=== PATIENT | male | born 2000 | race Caucasian/White ===

== ENCOUNTER 2021-05-30 11:42 | Observation (INO) | payer BC ==
[2021-05-30] VITALS (8 sets, daily range): BP systolic 108–122; BP diastolic 50–69
[~2021-05-30] VITALS: Ht 179.8 cm; Wt 66.4 kg
--- NOTE | 2021-05-30 12:13 | ED Abdominal Pain ---
General Chief Complaint: Abdominal/GI Problems Stated Complaint: ABD PAIN Source of Information: Patient Exam Limitations: No Limitations History of Present Illness Date Seen by Provider: May 30, 2021 Time Seen by Provider: 12:09 Initial Comments Patient is a 21-year-old male who presents ED with abdominal pain, diarrhea and vomiting. Symptoms started 2 days ago with generalized abdominal discomfort. Pain is more located in the lower abdomen. Pain has been generalized crampy worse with standing or movement. Gets relief when he lays down. Had 5-7 episodes of watery diarrhea yesterday was seen at [facility] and was given diarrhea medication. Patient was seen today at the clinic and was found to be febrile and tachycardic. Was given 2 L of fluid with abnormal lab work with elevated white blood count, bilirubin and CRP. Was sent to the ED for further evaluation and septic work-up. Patient did travel to [place] 3 weeks ago for spring. Did eat a salad recently. He states the diarrhea has improved. Vomited once nonbilious. Denies of any cough, runny nose, sore throat, ear pain, history of previous abdominal surgery. States he did urinate today after the diarrhea stopped. Patient is febrile and tachycardic on arrival. Septic work-up was initiated Allergies and Home Medications Allergies Coded Allergies: No Known Drug Allergies (Unverified , 05/30/21) Patient Home Medication List Home Medication List Reviewed: Yes Review of Systems Review of Systems Constitutional: chills; No diaphoresis; malaise, weakness EENTM: No Blurred Vision, No Eye Pain, No Ear Pain, No Mouth Pain Cardiovascular: Denies Chest Pain Gastrointestinal: Abdominal Pain, Diarrhea, Nausea, Vomiting Genitourinary: Denies Burning, Denies Discharge Musculoskeletal: No back pain, No joint pain Skin: No change in color, No change in hair/nails All Other Systems Reviewed Negative Unless Noted: Yes Past Ynybesh-Zurnfk-Oxvmjd Hx Patient Social History Tobacco Use?: No Substance use?: No Alcohol Use?: No Pt feels they are or have been: No Physical Exam Vital Signs Vital Signs - First Documented 05/30/21 12:05 Temp 38.3 Pulse 120 Resp 18 B/P (MAP) 145/86 (105) Pulse Ox 97 Capillary Refill : Height/Weight/BMI Height: '" Weight: lbs. oz. kg; BMI Method: General Appearance: WD/WN, no apparent distress HEENT: PERRL/EOMI, normal ENT inspection, TMs normal, pharynx normal Neck: non-tender, full range of motion Respiratory: chest non-tender, lungs clear, normal breath sounds, no respiratory distress, no accessory muscle use Cardiovascular: regular rate, rhythm, no edema, no gallop, no JVD Gastrointestinal: normal bowel sounds, non tender, no organomegaly, no pulsatile mass, tenderness (Generalized abdominal tenderness) Extremities: normal range of motion, non-tender, normal inspection Back: normal inspection, no CVA tenderness Skin: normal color, warm/dry Focused Exam Lactate Level 05/30/21 12:05: Lactic Acid Level 1.09 Lactic Acid Level Laboratory Tests Test 05/30/21 12:05 Lactic Acid Level 1.09 MMOL/L (0.50-2.00) Progress/Results/Core Measures Results/Orders Lab Results Laboratory Tests Test 05/30/21 12:05 05/30/21 12:50 Range/Units White Blood Count 13.2 H 4.3-11.0 10^3/uL Red Blood Count 4.80 4.30-5.52 10^6/uL Hemoglobin 13.6 13.3-17.7 g/dL Hematocrit 40 40-54 % Mean Corpuscular Volume 84 80-99 fL Mean Corpuscular Hemoglobin 28 25-34 pg Mean Corpuscular Hemoglobin Concent 34 32-36 g/dL Red Cell Distribution Width 12.6 10.0-14.5 % Platelet Count 131 130-400 10^3/uL Mean Platelet Volume 12.1 9.0-12.2 fL Immature Granulocyte % (Auto) 1 % Neutrophils (%) (Auto) 89 H 42-75 % Lymphocytes (%) (Auto) 5 L 12-44 % Monocytes (%) (Auto) 5 0-12 % Eosinophils (%) (Auto) 0 0-10 % Basophils (%) (Auto) 0 0-10 % Neutrophils # (Auto) 11.7 H 1.8-7.8 10^3/uL Lymphocytes # (Auto) 0.7 L 1.0-4.0 10^3/uL Monocytes # (Auto) 0.7 0.0-1.0 10^3/uL Eosinophils # (Auto) 0.0 0.0-0.3 10^3/uL Basophils # (Auto) 0.0 0.0-0.1 10^3/uL Immature Granulocyte # (Auto) 0.1 0.0-0.1 10^3/uL Neutrophils % (Manual) 82 % Lymphocytes % (Manual) 6 % Monocytes % (Manual) 5 % Band Neutrophils 7 % Blood Morphology Comment NORMAL Urine Color YELLOW Urine Clarity CLEAR Urine pH 6.5 5-9 Urine Specific [place] 1.020 1.016-1.022 Urine Protein 1+ H NEGATIVE Urine Glucose (UA) NEGATIVE NEGATIVE Urine Ketones 1+ H NEGATIVE Urine Nitrite NEGATIVE NEGATIVE Urine Bilirubin NEGATIVE NEGATIVE Urine Urobilinogen 0.2 < = 1.0 MG/DL Urine Leukocyte Esterase NEGATIVE NEGATIVE Urine RBC (Auto) TRACE-I H NEGATIVE Urine RBC 0-2 /HPF Urine WBC NONE /HPF Urine Crystals NONE /LPF Urine Bacteria NEGATIVE /HPF Urine Casts NONE /LPF Urine Mucus NEGATIVE /LPF Urine Culture Indicated NO Lactic Acid Level 1.09 0.50-2.00 MMOL/L Direct Bilirubin 0.3 0.0-0.3 MG/DL Influenza Type A (RT-PCR) Not Detected Not Detecte Influenza Type B (RT-PCR) Not Detected Not Detecte SARS-CoV-2 RNA (RT-PCR) Not Detected Not Detecte Prothrombin Time 15.7 H 12.2-14.7 SEC INR Comment 1.2 0.8-1.4 Activated Partial Thromboplast Time 37 H 24-35 SEC Sodium Level 134 L 135-145 MMOL/L Potassium Level 4.1 3.6-5.0 MMOL/L Chloride Level 101 98-107 MMOL/L Carbon Dioxide Level 20 L 21-32 MMOL/L Anion Gap 13 5-14 MMOL/L Blood Urea Nitrogen 12 7-18 MG/DL Creatinine 0.78 0.60-1.30 MG/DL Estimat Glomerular Filtration Rate 130 BUN/Creatinine Ratio 15 Glucose Level 108 H 70-105 MG/DL Calcium Level 9.2 8.5-10.1 MG/DL Corrected Calcium 9.4 8.5-10.1 MG/DL Total Bilirubin 3.9 H 0.1-1.0 MG/DL Aspartate Amino Transf (AST/SGOT) 17 5-34 U/L Alanine Aminotransferase (ALT/SGPT) 11 0-55 U/L Alkaline Phosphatase 52 40-136 U/L Total Protein 6.7 6.4-8.2 GM/DL Albumin 3.7 3.2-4.5 GM/DL My Orders Orders - DARVIN SALMERON Cbc With Automated Diff (05/30/21 12:02) Comprehensive Metabolic Panel (05/30/21 12:02) Blood Culture (05/30/21 12:02) Urinalysis (05/30/21 12:02) Urine Culture (05/30/21 12:02) Protime With Inr (05/30/21 12:02) Partial Thromboplastin Time (05/30/21 12:02) Chest 1 View, Ap/Pa Only (05/30/21 12:02) Ed Iv/Invasive Line Start (05/30/21 12:02) Ed Iv/Invasive Line Start (05/30/21 12:02) Vital Signs Adult Sepsis Patie Q15M (05/30/21 12:02) Ondansetron Injection (Zofran Injectio (05/30/21 12:15) O2 (05/30/21 12:02) Remove Rings In Anticipation O (05/30/21 12:02) Lactic Acid Analyzer (05/30/21 12:02) Influenza A And B By Pcr (05/30/21 12:02) Ns Iv 1000 Ml (Sodium Chloride 0.9%) (05/30/21 12:15) Piperacillin Sodium/Tazobactam (Zosyn Vi (05/30/21 12:15) Covid 19 Inhouse Test (05/30/21 12:02) Hepatitis Panel Acute (05/30/21 12:02) Ct Abdomen/Pelvis W (05/30/21 12:04) Manual Differential (05/30/21 12:05) Ketorolac Injection (Toradol Injection) (05/30/21 13:00) Iohexol Injection (Omnipaque 350 Mg/Ml 1 (05/30/21 13:00) Received Contrast (Hold Metformin- Contr (05/30/21 13:00) Sodium Chloride Flush (Catheter Flush Sy (05/30/21 13:00) Ns (Ivpb) (Sodium Chloride 0.9% Ivpb Bag (05/30/21 13:00) Bilirubin,Direct (05/30/21 13:21) Nothing By Mouth (05/30/21 Lunch) Medications Given in ED Current Medications Medications Dose Ordered Sig/Levar Route Start Time Stop Time Status Last Admin Dose Admin Iohexol 100 ml ONCE ONCE IV 05/30/21 13:00 05/30/21 13:01 DC 05/30/21 13:23 80 ML Ketorolac Tromethamine 30 mg ONCE ONCE IVP 05/30/21 13:00 05/30/21 13:01 DC 05/30/21 13:06 30 MG Ondansetron HCl 4 mg PRN PRN IV 05/30/21 12:15 05/30/21 12:35 DC 05/30/21 12:34 4 MG Piperacillin Sod/ Tazobactam Sod 4.5 gm/Sodium Chloride 100 ml @ 200 mls/hr ONCE ONCE IV 05/30/21 12:15 05/30/21 12:44 DC 05/30/21 13:06 200 MLS/HR Sodium Chloride 10 ml NEEDED PRN IV 05/30/21 13:00 05/30/21 13:23 10 ML Sodium Chloride 100 ml ONCE ONCE IV 05/30/21 13:00 05/30/21 13:01 DC 05/30/21 13:23 80 ML Vital Signs/I&O 05/30/21 12:05 Temp 38.3 Pulse 120 Resp 18 B/P (MAP) 145/86 (105) Pulse Ox 97 Departure Communication (PCP) Patient was tachycardic and febrile. Was given Toradol and started on liter of fluid. Normal lactic acid. Blood cultures pending. Was given a dose of Zosyn. Discussed patient with Dr. Acharya is concerning for biliary disease secondary to elevated bilirubin and conjugated bilirubin. Elevated white blood count. Patient does have abdominal pain appears to be located on the right side. Negative psoas sign and obturator sign. Healthy gentleman. Last time he ate or drank was 1030 and drank a bottle water. Received 2 L of fluid at [facility]. Slight elevated bilirubin 3.9. Normal conjugated bilirubin. Elevated white blood count. Normal kidney function and liver function and pancreatic function. Negative influenza and strep. Hepatitis panel pending. CT abdomen pelvis concerning for acute appendicitis. Patient was discussed with Dr. Peralta who will see patient here in the ED. recommend surgery today. Will be admitted to medical floor surgical services under Dr. Peralta Impression Primary Impression: Appendicitis Disposition: 09 ADMITTED INPATIENT Condition: Stable Admissions Decision to Admit Reason: Admit from ER (General) Decision to Admit/Date: May 30, 2021 Time/Decision to Admit Time: 14:01 Departure-Patient Inst. Referrals: NO,LOCAL PHYSICIAN (PCP/Family) Primary Care Physician DARVIN SALMERON May 30, 2021 12:13
[2021-05-30] MEDS ORDERED: ONDANSETRON 4 MG/2 ML (SDV) Z0FRAN IV PRN (12:15)
[2021-05-30] MEDS ORDERED: PIPERACILLIN SODIUM/TAZOBACTAM 4.5 GM in NS (IVPB) 100 ML IV ONE (12:15)
[2021-05-30] MEDS ORDERED: NS IV 1000 ML 1,000 ML IV SCH (12:15)
[2021-05-30 12:49] LABS: BASOPHILS % (AUTO) 0 % (0-10); EOSINOPHILS % (AUTO) 0 % (0-10); HEMATOCRIT 40 % (40-54); HEMOGLOBIN 13.6 g/dL (13.3-17.7); LYMPHOCYTES # (AUTO) 0.7 10^3/uL (1.0-4.0); LYMPHOCYTES % (AUTO) 5 % (12-44); MEAN CORPUSCULAR HEMOGLOBIN 28 pg (25-34); MEAN CORPUSCULAR HGB CONC 34 g/dL (32-36); MEAN CORPUSCULAR VOLUME 84 fL (80-99); MEAN PLATELET VOLUME 12.1 fL (9.0-12.2); MONOCYTES # (AUTO) 0.7 10^3/uL (0.0-1.0); MONOCYTES % (AUTO) 5 % (0-12); NEUTROPHILS # (AUTO) 11.7 10^3/uL (1.8-7.8); NEUTROPHILS % (AUTO) 89 % (42-75); PLATELET COUNT 131 10^3/uL (130-400); WHITE BLOOD COUNT 13.2 10^3/uL (4.3-11.0)
[2021-05-30 12:53] LABS: BILIRUBIN,URINE NEGATIVE (NEGATIVE); CLARITY,URINE CLEAR; COLOR,URINE YELLOW; GLUCOSE, URINE (UA) NEGATIVE (NEGATIVE); KETONES,URINE 1+ (NEGATIVE); LEUKOCYTE ESTERASE ,URINE NEGATIVE (NEGATIVE); NITRITE,URINE NEGATIVE (NEGATIVE); PH,URINE 6.5 (5-9); PROTEIN,URINE 1+ (NEGATIVE)
[2021-05-30 12:58] LABS: ALBUMIN 3.7 GM/DL (3.2-4.5)
[2021-05-30 12:59] LABS: POTASSIUM 4.1 MMOL/L (3.6-5.0)
[2021-05-30 13:00] LABS: CALCIUM 9.2 MG/DL (8.5-10.1)
[2021-05-30] MEDS ORDERED: CATHETER FLUSH 10 ML SYR IV PRN (13:00)
[2021-05-30] MEDS ORDERED: NS 100 ML (IVPB) BAG IV ONE (13:00)
[2021-05-30] MEDS ORDERED: KETOROLAC 30 MG/ML VIAL IVP ONE ×2 (13:00→21:15)
[2021-05-30] MEDS ORDERED: HOLD METFORMIN - RECEIVED CONTRAST 20 ML VIAL IV SCH (13:00)
[2021-05-30] MEDS ORDERED: IOHEXOL 350 MG/ML 100 ML (OMNIPAQUE 350) VIAL IV ONE (13:00)
[2021-05-30 13:01] LABS: TOTAL PROTEIN 6.7 GM/DL (6.4-8.2)
[2021-05-30 13:02] LABS: INR 1.2 (0.8-1.4); PROTHROMBIN TIME PATIENT 15.7 SEC (12.2-14.7)
[2021-05-30 13:03] LABS: BILIRUBIN,TOTAL 3.9 MG/DL (0.1-1.0)
[2021-05-30 13:03] LABS: RBC,URINE 0-2 /HPF
[2021-05-30 13:04] LABS: BACTERIA,URINE NEGATIVE /HPF
[2021-05-30 13:05] LABS: CREATININE SERUM 0.78 MG/DL (0.60-1.30)
[2021-05-30 13:14] LABS: BAND NEUTROPHILS 7 %; LYMPHOCYTES % (MANUAL) 6 %; MONOCYTES % (MANUAL) 5 %; NEUTROPHILS % (MANUAL) 82 %; RBC MORPH NORMAL
--- NOTE | 2021-05-30 13:27 | Diagnostic Imaging Report ---
Indication: Lower abdominal pain. Time of Exam: 1:20 PM No prior studies are available for comparison. Finding: The heart size is normal. The pulmonary vascularity is unremarkable. The lungs are clear. No infiltrate, effusion or pneumothorax is detected. Impression: No acute cardiopulmonary process is detected. Dictated by: Dictated on workstation # [id number]
--- NOTE | 2021-05-30 13:41 | Diagnostic Imaging Report ---
PROCEDURE: CT abdomen and pelvis with contrast. TECHNIQUE: Multiple contiguous axial images were obtained through the abdomen and pelvis after administration of intravenous contrast. Auto Exposure Controls were utilized during the CT exam to meet ALARA standards for radiation dose reduction. All CT scans use one or more of the following dose optimizing techniques: automated exposure control, MA and/or KvP adjustment based on patient size and exam type or iterative reconstruction. INDICATION: Lower abdominal pain, abnormal labs. COMPARISON: Radiographs from the same date. FINDINGS: Calcified granuloma within the left lower lobe. The liver is at the upper limits of normal in size without focal hepatic mass. The spleen is unremarkable. The adrenal glands are unremarkable. The pancreas is unremarkable. The gallbladder is mildly abnormally dilated measuring just over 10 cm in length. There is however no significant inflammatory stranding about the gallbladder. Additionally, there is no dilatation of the common bile duct. The bilateral kidneys are unremarkable. No aneurysmal dilatation of the abdominal aorta. Multiple fluid-filled loops of small bowel are identified throughout the abdomen and pelvis. The large and small bowel is diffusely fluid filled. A blind-ending tubular structure measuring up to 1.1 cm is present within the right lower quadrant with associated internal hyperdensity. This is felt to relate to an abnormally dilated appendix. This is associated with inflammatory stranding within the right lower quadrant. No drainable focal fluid collection. Lymph nodes within the right lower quadrant appear increased in size and number. Regions of mural thickening are identified scattered throughout both the large and small bowel, greatest within the small bowel within the lower pelvis. Small amount of free fluid. No free air. The urinary bladder is grossly unremarkable. No acute osseous abnormality. IMPRESSION: Findings concerning for acute appendicitis without evidence of perforation or abscess formation. Small appendicolith is present. Scattered regions of mural thickening involving the large and small bowel, greatest involving the small bowel. This may be reactive in nature, though could also be secondary to underlying enterocolitis. Fluid throughout the large and small bowel, felt to relate to underlying diarrheal state. Reactive lymph nodes within the right lower quadrant. The gallbladder is mildly dilated. This is favored to be reactive in nature. However, if there is clinical concern for acute cholecystitis, a right upper quadrant ultrasound would be recommended. Dictated by: Dictated on workstation # [id number]
--- NOTE | 2021-05-30 15:34 | Consultation - Surgery ---
History of Present Illness History of Present Illness Patient Consulted On(tariq/time) 05/30/21 15:28 Time Seen by Provider: 15:01 History of Present Illness Surgery asked to consult regarding RLQ pain, r/o appendicitis. HPI per ED: Patient is a 21-year-old male who presents ED with abdominal pain, diarrhea and vomiting. Symptoms started 2 days ago with generalized abdominal discomfort. Pain is more located in the lower abdomen. Pain has been generalized crampy worse with standing or movement. Gets relief when he lays down. Had 5-7 episodes of watery diarrhea yesterday was seen at [facility] and was given diarrhea medication. Patient was seen today at the clinic and was found to be febrile and tachycardic. Was given 2 L of fluid with abnormal lab work with elevated white blood count, bilirubin and CRP. Was sent to the ED for further evaluation and septic work-up. Patient did travel to [place] 3 weeks ago for spring. Did eat a salad recently. He states the diarrhea has improved. Vomited once nonbilious. Denies of any cough, runny nose, sore throat, ear pain, history of previous abdominal surgery. States he did urinate today after the diarrhea stopped. Patient is febrile and tachycardic on arrival. Septic work-up was initiated When I spoke to pt he was in the ER, appeared comfortable. States the pain started thursday and was first upper but now lower right side of abdomen. Pain is not going away and is worse with movement. He was seen at [facility] and given 2L of fluid and then got another one liter in ER. Pain is controlled with meds. Allergies and Home Medications Allergies Coded Allergies: No Known Drug Allergies (Unverified , 05/30/21) Patient Home Medication List Home Medication List Reviewed: Yes Past Apyfnoq-Xrozju-Jtatwt Hx Patient Social History Smoking Status: Never a Smoker Alcohol Use?: Yes Surgeries History of Surgeries: No Respiratory History of Respiratory Disorde: No Cardiovascular History of Cardiac Disorders: No Neurological History of Neurological Disord: No Genitourinary History of Genitourinary Disor: No Gastrointestinal History of Gastrointestinal Di: No Musculoskeletal History of Musculoskeletal Dis: No Endocrine History of Endocrine Disorders: No HEENT History of HEENT Disorders: No Loss of Vision: Denies Hearing Impairment: Denies Cancer History of Cancer: No Psychosocial History of Psychiatric Problem: No Integumentary History of Skin or Integumenta: No Family Medical History Significant Family History: Cancer ("father's side of the family"), Hypertension (Mother) Review of Systems-General Constitutional: chills, diaphoresis, malaise, weakness EENTM: No blurred vision, No mouth swelling, No epistaxis Respiratory: No cough, No dyspnea on exertion, No hemoptysis, No short of breath Cardiovascular: No chest pain, No palpitations Gastrointestinal: abdominal pain, diarrhea; No jaundice; nausea, vomiting Genitourinary: No dysuria, No frequency, No hematuria Musculoskeletal: No joint pain, No joint swelling, No muscle pain, No muscle stiffness Skin: No change in color, No change in hair/nails Psychiatric/Neurological: Denies Anxiety, Denies Depressed, Denies Seizure, Denies Tremors Physical Exam-General Problems Physical Exam Vital Signs Vital Signs - First Documented 05/30/21 12:05 Temp 38.3 Pulse 120 Resp 18 B/P (MAP) 145/86 (105) Pulse Ox 97 Capillary Refill : Less Than 3 Seconds General Appearance: WD/WN, no apparent distress Eyes: Bilateral Eye PERRL, Bilateral Eye EOMI HEENT: pharynx normal; No scleral icterus (R), No scleral icterus (L) Neck: non-tender, full range of motion, supple Respiratory: chest non-tender, lungs clear, normal breath sounds, no respiratory distress, no accessory muscle use Cardiovascular: no murmur, tachycardia Gastrointestinal: soft, no organomegaly, no pulsatile mass, tenderness (diffusely but more in RLQ); No hernia Back: no CVA tenderness, no vertebral tenderness Extremities: normal range of motion, normal inspection, no pedal edema, no calf tenderness 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, no motor/sensory deficits, normal mood/affect, oriented x 3 Skin: normal color, warm/dry Lymphatic: no adenopathy (neck, axilla or groin) Data Review Labs Laboratory Tests 05/30/21 12:05: White Blood Count 13.2H, Red Blood Count 4.80, Hemoglobin 13.6, Hematocrit 40, Mean Corpuscular Volume 84, Mean Corpuscular Hemoglobin 28, Mean Corpuscular Hemoglobin Concent 34, Red Cell Distribution Width 12.6, Platelet Count 131, Mean Platelet Volume 12.1, Immature Granulocyte % (Auto) 1, Neutrophils (%) (Auto) 89H, Lymphocytes (%) (Auto) 5L, Monocytes (%) (Auto) 5, Eosinophils (%) (Auto) 0, Basophils (%) (Auto) 0, Neutrophils # (Auto) 11.7H, Lymphocytes # (Auto) 0.7L, Monocytes # (Auto) 0.7, Eosinophils # (Auto) 0.0, Basophils # (Auto) 0.0, Immature Granulocyte # (Auto) 0.1, Neutrophils % (Manual) 82, Lymphocytes % (Manual) 6, Monocytes % (Manual) 5, Band Neutrophils 7, Blood Morphology Comment NORMAL, Urine Color YELLOW, Urine Clarity CLEAR, Urine pH 6.5, Urine Specific [place] 1.020, Urine Protein 1+H, Urine Glucose (UA) NEGATIVE, Urine Ketones 1+H, Urine Nitrite NEGATIVE, Urine Bilirubin NEGATIVE, Urine Urobilinogen 0.2, Urine Leukocyte Esterase NEGATIVE, Urine RBC (Auto) TRACE-IH, Urine RBC 0-2, Urine WBC NONE, Urine Crystals NONE, Urine Bacteria NEGATIVE, Urine Casts NONE, Urine Mucus NEGATIVE, Urine Culture Indicated NO, Lactic Acid Level 1.09, Direct Bilirubin 0.3, Influenza Type A (RT-PCR) Not Detected, Influenza Type B (RT-PCR) Not Detected, SARS-CoV-2 RNA (RT-PCR) Not Detected 05/30/21 12:50: Prothrombin Time 15.7H, INR Comment 1.2, Activated Partial Thromboplast Time 37H , Sodium Level 134L, Potassium Level 4.1, Chloride Level 101, Carbon Dioxide Level 20L, Anion Gap 13, Blood Urea Nitrogen 12, Creatinine 0.78, Estimat Glomerular Filtration Rate 130, BUN/Creatinine Ratio 15, Glucose Level 108H, Calcium Level 9.2, Corrected Calcium 9.4, Total Bilirubin 3.9H, Aspartate Amino Transf (AST/SGOT) 17, Alanine Aminotransferase (ALT/SGPT) 11, Alkaline Phosphatase 52, Total Protein 6.7, Albumin 3.7 Radiology Date of Exam:05/30/21 CT ABDOMEN/PELVIS W PROCEDURE: CT abdomen and pelvis with contrast. TECHNIQUE: Multiple contiguous axial images were obtained through the abdomen and pelvis after administration of intravenous contrast. Auto Exposure Controls were utilized during the CT exam to meet ALARA standards for radiation dose reduction. All CT scans use one or more of the following dose optimizing techniques: automated exposure control, MA and/or KvP adjustment based on patient size and exam type or iterative reconstruction. INDICATION: Lower abdominal pain, abnormal labs. COMPARISON: Radiographs from the same date. FINDINGS: Calcified granuloma within the left lower lobe. The liver is at the upper limits of normal in size without focal hepatic mass. The spleen is unremarkable. The adrenal glands are unremarkable. The pancreas is unremarkable. The gallbladder is mildly abnormally dilated measuring just over 10 cm in length. There is however no significant inflammatory stranding about the gallbladder. Additionally, there is no dilatation of the common bile duct. The bilateral kidneys are unremarkable. No aneurysmal dilatation of the abdominal aorta. Multiple fluid-filled loops of small bowel are identified throughout the abdomen and pelvis. The large and small bowel is diffusely fluid filled. A blind-ending tubular structure measuring up to 1.1 cm is present within the right lower quadrant with associated internal hyperdensity. This is felt to relate to an abnormally dilated appendix. This is associated with inflammatory stranding within the right lower quadrant. No drainable focal fluid collection. Lymph nodes within the right lower quadrant appear increased in size and number. Regions of mural thickening are identified scattered throughout both the large and small bowel, greatest within the small bowel within the lower pelvis. Small amount of free fluid. No free air. The urinary bladder is grossly unremarkable. No acute osseous abnormality. IMPRESSION: Findings concerning for acute appendicitis without evidence of perforation or abscess formation. Small appendicolith is present. Scattered regions of mural thickening involving the large and small bowel, greatest involving the small bowel. This may be reactive in nature, though could also be secondary to underlying enterocolitis. Fluid throughout the large and small bowel, felt to relate to underlying diarrheal state. Reactive lymph nodes within the right lower quadrant. The gallbladder is mildly dilated. This is favored to be reactive in nature. However, if there is clinical concern for acute cholecystitis, a right upper quadrant ultrasound would be recommended. Dictated on workstation # [id number] Dict: 05/30/21 1327 Trans: 05/30/21 1341 [id number] [id number] Interpreted by: MIGUEL ZAMBRANO MD Assessment/Plan Assessment/Plan Assessment/Plan Acute Appendicitis Plan admit, NPO, IV fluids, IV pain meds and anti-emetics as needed. Will obtain consent for Laparoscopic Appendectomy, possible open. I spoke with pt and his mother, regarding the procedure. Went over risks and complications including but not limited to pain, bleeding, infection, scar, damage to bowel and need for further procedure. All questions answered to pt's satisfaction. I reviewed the CT myself and discussed case with ED provider, pt does have very dilated appendix with appendicolith and no perforation. It was also noted that his gallbladder is dilated and to me it looks like his cecum is also dilated and possibly thickened. Will take pictures when I am doing this case. RAQUEL LIANG DO May 30, 2021 15:34
[2021-05-30] MEDS: LACTATED RINGERS 1,000 ML IV PRN ×2 (16:07→19:38)
[2021-05-30] MEDS ORDERED: LIDOCAINE/EPI 2% 1:200,00 (XYLOCAINE) 20 ML VIAL ONE (18:46)
[2021-05-30] MEDS ORDERED: LIDOCAINE PF 2% 5 ML (XYLOCAINE) VIAL ONE ×2 (19:04→19:07)
[2021-05-30] MEDS ORDERED: SEVOFLURANE (ULTANE) 15 ML INHAL SOLN ONE ×2 (19:04→20:45)
[2021-05-30] MEDS ORDERED: ROCURONIUM 10 MG/ML 5 ML SYRINGE IV ONE (19:04)
[2021-05-30] MEDS ORDERED: proPOfol 200 MG/20 ML (DIPRIVAN) VIAL IV ONE (19:04)
[2021-05-30] MEDS ORDERED: fentaNYL INJ 100 MCG/2 ML AMP ONE (19:05)
[2021-05-30] MEDS ORDERED: MIDAZOLAM 2 MG/2 ML (VERSED) VIAL ONE (19:06)
[2021-05-30] MEDS ORDERED: ceFAZolin 2 GM IV Premixed 50 ML ONE (19:10)
[2021-05-30] MEDS ORDERED: ceFAZolin 2 GM IV Premixed 50 ML IV ONE (19:15)
[2021-05-30] MEDS ORDERED: NEOSTIGMINE 3 MG/3 ML VIAL ONE (20:57)
[2021-05-30] MEDS ORDERED: GLYCOPYRROLATE 0.2 MG/ML (ROBINUL) 2 ML VIAL ONE (20:57)
--- NOTE | 2021-05-30 21:11 | Anesthesia-General Post-Op ---
General Patient Condition Mental Status/LOC: Same as Preop Cardiovascular: Satisfactory Nausea/Vomiting: Absent Respiratory: Satisfactory Pain: Controlled Complications: Absent Post Op Complications Complications None Follow Up Care/Instructions Patient Instructions None needed. Anesthesia/Patient Condition Patient Condition Patient is doing well, no complaints, stable vital signs, no apparent adverse anesthesia problems. No complications reported per nursing. HARJINDER MOARN CRNA May 30, 2021 21:11
--- NOTE | 2021-05-30 21:11 | Progress Note-Post Operative ---
Post-Operative Progess Note Surgeon (s)/Retail Planner (s) Surgeon RAQUEL LIANG DO Retail Planner: none Pre-Operative Diagnosis APPENDICITIS Post-Operative Diagnosis Acute perforated Appendicitis Procedure & Operative Findings Date of Procedure 05/30/21 Procedure Performed/Findings PROCEDURE: Laparoscopic appendectomy. COMPLICATIONS: None. INDICATIONS: The patient is a 21 year old male who has been having right lower quadrant abdominal pain. Patient's exam consistent with appendicitis. I discussed risk and benefits of laparoscopic appendectomy and all indicated procedures with the possibility being a normal appendix. The patient understands the risks and benefits and wishes to proceed. Consent was signed on the chart. DESCRIPTION OF PROCEDURE: The patient was taken to the operating suite, prepped and draped in a sterile fashion. Timeout was performed. Local anesthetic was infiltrated just above the umbilicus and 11-blade scalpel was used to make a skin incision. Cautery was used to dissect down to the fascia and scored. Kochers were used to grasp and elevate it and the abdomen was then entered. A 0 Vicryl was placed in a [id number] fashion for closure at the end of the case. The balloon trocar was inserted into the abdomen and pneumoperitoneum was achieved. Under direct visualization of the laparoscope, a 5 mm trocar was placed in the suprapubic region and a 5 mm trocar was placed in the left lower quadrant. Once the first trocar was placed immediately noted a murky fluid. Looking around the abdomen there was purulent fluid, even above the liver. Omentum was stuck up to the abdominl wall and purulent fluid was found when it was taken down. Fibrinous material covered all of the bowel and pelvis in lower portion of abdomen. Moved the omentum out of the way and had to peel apart the small bowel to find the cecum, TI and appendix. Appendix was very thickened, firm and may have had a small perforation. Started trying to dissect the appendix out. Using blunt dissection, hydro-dissection and the ligasure; it took about 45 minutes to get to the base/ Then using an Endo-REANNA 2.5 stapler to fire across the base of the appendix. The mesoappendix had been divided to get down to the base with the Ligasure. It was then placed in an Endobag and removed through the 12 mm trocar site. The abdomen was then copiously irrigated and suctioned with 5 L of warm NS and removed as much fibrinous material as possiblen off the small bowel. The gallbladder was noted to be distended, but did not look inflamed. The abdomen was then desufflated and the trocars were removed. An 0 Vicryl figure of eight stitch was placed and then tied closing the 12 mm fascial defect. The skin was then closed using 4-0 Monocryl in a subcuticular fashion. The abdomen was then washed and dried and Skin Affix was placed over the incisions. The patient tolerated the procedure well without any complications and was taken to the recovery room in stable condition. Anesthesia Type GET Estimated Blood Loss Estimated blood loss (mL): less than 20ml Specimens/Packing Specimens Removed RAQUEL Mckeon DO May 30, 2021 21:11
[2021-05-30] MEDS ORDERED: MEPERIDINE (DEMEROL) INJ 50 MG/ML IVP ONE (21:15)
[2021-05-30] MEDS ORDERED: PROMETHAZINE INJ 25 MG/ML (PHENERGAN) AMP IVP ONE (21:15)
[2021-05-30] MEDS ORDERED: ONDANSETRON 4 MG/2 ML (SDV) Z0FRAN IVP PRN ×2 (21:15)
[2021-05-30] MEDS ORDERED: HYDROcodone/APAP 5 MG/325 MG (LORTAB) TAB PO PRN (21:15)
[2021-05-30] MEDS ORDERED: morphine INJ 10 MG/ML 1ML (SYR OR VIAL) IVP ONE (21:15)
[2021-05-30] MEDS ORDERED: fentaNYL INJ 100 MCG/2 ML AMP IVP ONE (21:15)
[2021-05-30 21:42] LABS: HEPATITIS C ANTIBODY C Non-Reactive (Non-Reactive)
[2021-05-30] MEDS: LACTATED RINGERS 1,000 ML IV SCH ×3 (23:20→23:32)
[2021-05-30] MEDS: PIPERACILLIN SODIUM/TAZOBACTAM 4.5 GM in NS (IVPB) 100 ML IV SCH (23:20)
[2021-05-31 00:08] VITALS: BP 113/62
[2021-05-31 03:27] VITALS: BP 107/55
[2021-05-31] MEDS: LACTATED RINGERS 1,000 ML IV SCH ×3 (05:18→10:18)
[2021-05-31] MEDS: PIPERACILLIN SODIUM/TAZOBACTAM 4.5 GM in NS (IVPB) 100 ML IV SCH (06:30)
[2021-05-31 08:27] VITALS: BP 110/56
[2021-05-31] MEDS ORDERED: PANTOPRAZOLE 40 MG (PROTONIX) VIAL IVP SCH (09:00)
--- NOTE | 2021-05-31 09:56 | Progress Note - Surgery ---
Subjective Time Seen by a Provider: 09:29 Subjective/Events-last exam Pt seen and examined, tolerating clears and pain controlled. He walked in the rodriguez. States he is feeling better compared to when he came into the hospital Review of Systems General: No Chills, No Night Sweats Pulmonary: No Dyspnea, No Cough Cardiovascular: No: Chest Pain, Palpitations Gastrointestinal: Abdominal Pain (minimal and mostly at incisions); No: Nausea, Vomiting Focused Exam Lactate Level 05/30/21 12:05: Lactic Acid Level 1.09 Objective Exam Vital Signs Date Time Temp Pulse Resp B/P (MAP) Pulse Ox O2 Delivery O2 Flow Rate FiO2 05/31/21 08:27 37.3 82 17 110/56 (74) 98 Room Air 05/31/21 08:00 97 Room Air 05/31/21 03:27 37.0 61 16 107/55 (72) 97 Room Air 05/31/21 00:08 37.2 75 16 113/62 (79) 98 Room Air 05/30/21 23:00 Room Air 05/30/21 21:56 37.8 12 116/64 (81) 95 Room Air 05/30/21 21:54 Room Air 05/30/21 21:50 13 117/69 (85) 96 Room Air 05/30/21 21:45 Room Air 05/30/21 21:40 14 118/67 (84) 96 OxyMask 1 05/30/21 21:35 OxyMask 1 05/30/21 21:30 14 122/66 (84) 99 OxyMask 2 05/30/21 21:21 OxyMask 4 05/30/21 21:20 12 110/54 (72) 100 OxyMask 8 05/30/21 21:10 12 108/50 (69) 98 OxyMask 8 05/30/21 21:06 OxyMask 8 05/30/21 21:06 37.5 16 113/50 (71) 98 OxyMask 8 05/30/21 16:01 36.1 89 16 117/63 (81) 97 Room Air 05/30/21 15:36 90 18 121/68 98 05/30/21 12:05 38.3 120 18 145/86 (105) 97 I & O 05/31/21 07:00 Intake Total 4450 ml Balance 4450 ml Capillary Refill : Less Than 3 SecondsLess Than 3 Seconds General Appearance: No Apparent Distress, WD/WN Respiratory: Lungs Clear, Normal Breath Sounds, No Accessory Muscle Use, No Respiratory Distress Cardiovascular: Regular Rate, Rhythm, No Murmur Gastrointestinal: soft, tenderness (minimal and mostly at incisions); No hernia Results Lab Laboratory Tests 05/30/21 12:05: White Blood Count 13.2H, Red Blood Count 4.80, Hemoglobin 13.6, Hematocrit 40, Mean Corpuscular Volume 84, Mean Corpuscular Hemoglobin 28, Mean Corpuscular Hemoglobin Concent 34, Red Cell Distribution Width 12.6, Platelet Count 131, Mean Platelet Volume 12.1, Immature Granulocyte % (Auto) 1, Neutrophils (%) (Auto) 89H, Lymphocytes (%) (Auto) 5L, Monocytes (%) (Auto) 5, Eosinophils (%) (Auto) 0, Basophils (%) (Auto) 0, Neutrophils # (Auto) 11.7H, Lymphocytes # (Auto) 0.7L, Monocytes # (Auto) 0.7, Eosinophils # (Auto) 0.0, Basophils # (Auto) 0.0, Immature Granulocyte # (Auto) 0.1, Neutrophils % (Manual) 82, Lymphocytes % (Manual) 6, Monocytes % (Manual) 5, Band Neutrophils 7, Blood Morphology Comment NORMAL, Urine Color YELLOW, Urine Clarity CLEAR, Urine pH 6.5, Urine Specific Altha 1.020, Urine Protein 1+H, Urine Glucose (UA) NEGATIVE, Urine Ketones 1+H, Urine Nitrite NEGATIVE, Urine Bilirubin NEGATIVE, Urine Urobilinogen 0.2, Urine Leukocyte Esterase NEGATIVE, Urine RBC (Auto) TR DEJUAN-IH, Urine RBC 0-2, Urine WBC NONE, Urine Crystals NONE, Urine Bacteria NEGATIVE, Urine Casts NONE, Urine Mucus NEGATIVE, Urine Culture Indicated NO, Lactic Acid Level 1.09, Direct Bilirubin 0.3, Influenza Type A (RT-PCR) Not Detected, Influenza Type B (RT-PCR) Not Detected, SARS-CoV-2 RNA (RT-PCR) Not Detected 05/30/21 12:50: Prothrombin Time 15.7H, INR Comment 1.2, Activated Partial Thromboplast Time 37H , Sodium Level 134L, Potassium Level 4.1, Chloride Level 101, Carbon Dioxide Level 20L, Anion Gap 13, Blood Urea Nitrogen 12, Creatinine 0.78, Estimat Glomerular Filtration Rate 130, BUN/Creatinine Ratio 15, Glucose Level 108H, Calcium Level 9.2, Corrected Calcium 9.4, Total Bilirubin 3.9H, Aspartate Amino Transf (AST/SGOT) 17, Alanine Aminotransferase (ALT/SGPT) 11, Alkaline Phosphatase 52, Total Protein 6.7, Albumin 3.7, Hepatitis A IgM Antibody Non- Reactive, Hepatitis B Surface Antigen Non-Reactive, Hepatitis B Core IgM Antibody Non-Reactive, Hepatitis C Antibody Non-Reactive Assessment/Plan Assessment/Plan Assessment/Plan S/P Appendectomy Will change to soft diet for lunch and if tolerates will send him home with ABX for 6 day and PO pain meds. RAQUEL LIANG DO May 31, 2021 09:56
[2021-05-31] MEDS ORDERED: AMOX-355 PO (09:58)
[2021-05-31] MEDS ORDERED: ACHD5005 PO (09:58)
--- NOTE | 2021-05-31 09:59 | Discharge Inst-Surgical ---
Discharge Inst-Surgical Depart Medication/Instructions New, Converted or Re-Newed RX: Transmitted to Pharmacy Patient Instructions Follow up Appt: Make appointment for 1 week. [phone] Instructions: No lifting greater than 20 pounds. No strenuous activity. May shower in 24 hours, no tub bath or soaking. Use incentive spirometer at home as directed. No Smoking Skin/Wound Care: May remove bandages in am. You need to leave the Dermabond on incision it will fall off on it's own. Symptoms to Report: Appetite Changes, Extremity Discoloration, Numbness/Tingling, Swelling Increased, Bleeding Excessive, Eyesight Changes, Pain Increased, Urine Color Change, Constipation(Persistent), Fever over 101 degree F, Pain/Pressure in chest, Urinating Difficulty, Cough Up/Vomit Blood, Heart Beat Irreg/Pounding, Pain/Pressure in jaw, Cramps in feet or legs, Lightheadedness, Pain/Pressure in shoulder, Diarrhea(Persistent), Memory Changes Suddenly, Questions/Concerns, Weight gain consecutive days, Dizziness/Fainting, Nausea/Vomiting, Shortness of Breath, Weight gain over 2 pounds If questions or concerns contact your physician Or seek help at emergency department. Activity Activity as Tolerated: Yes Driving Instructions: No Driving/Refer to Dr. Torres Discharge Diet: No Restrictions Diet After 24 Hours: Clear Liquid if Nauseous If Any Problems/Questions/Issu: Contact Your Physician, Go to Emergency Room Skin/Wound Care Infection Signs and Symptoms: Increased Redness, Foul Odor of Wound, Increased Drainage, Skin Itchy or Has a Rash, Increased Swelling, Temperature Above 101 F Bathing Instructions: Shower Stitches/Smiley/Dermabond Dis: RAQUEL Garcia DO May 31, 2021 09:59
[2021-05-31 11:56] VITALS: BP 120/63
== END 2021-05-31 14:10 | disposition home or self-care (01) ==
LOC: ER 11:44 → SDC 14:13 → 4TH 15:05
PROVIDERS: ADMIT Surgery; ATTEND Surgery
DX: K35.32 Acute appendicitis with perforation, localized peritonitis, and gangrene, without abscess (principal)
CPT/HCPCS: 36415; 71045; 74177; 80053; 80074; 81000; 82248; 83605; 85007; 85027; 85610; 85730; 87040; 87088; 87636; 96374; 96375; 96376